=== PATIENT | female | born 1950 | race Caucasian/White ===

== ENCOUNTER 2020-10-10 13:46 | Outpatient (CLI) | payer MEDICARE, BC | END 2020-10-10 13:47 | disposition home or self-care (01) | LOC: COV 13:46 | PROVIDERS: ATTEND Internal Medicine Gastroenterology | DX: Z01.812 Encounter for preprocedural laboratory examination (principal); Z20.822 Contact with and (suspected) exposure to COVID-19 ==

== ENCOUNTER 2023-12-13 13:52 | Emergency (ER) | payer MEDICARE, BC ==
[2023-12-13 14:44] LABS: BASOPHILS % (AUTO) 0.5 %; EOSINOPHILS % (AUTO) 0.4 %; HCT - HEMATOCRIT 40.3 % (37.0-47.0); LYMPHOCYTES # (AUTO) 1.1 10^3/uL (1.5-3.5); LYMPHOCYTES % (AUTO) 19.7 %; MEAN CORPUSCULAR HEMOGLOBIN 33.3 pg (27.0-31.0); MEAN CORPUSCULAR HGB CONC 34.7 g/dL (32.0-36.0); MEAN CORPUSCULAR VOLUME 95.7 fL (81.0-99.0); MEAN PLATELET VOLUME 9.8 fL (7.9-10.8); MONOCYTES # (AUTO) 0.3 10^3/uL (0.0-1.0); MONOCYTES % (AUTO) 5.6 %; NEUTROPHILS # (AUTO) 4.2 10^3/uL (1.5-6.6); NEUTROPHILS % (AUTO) 73.6 %; PLT - PLATELET COUNT 271 10^3/uL (130-450); RED BLOOD COUNT 4.21 10^6/uL (4.20-5.40); RED CELL DISTRIBUTION WIDTH 12.8 % (12.0-15.0); WHITE BLOOD COUNT 5.7 x10^3/uL (4.8-10.8)
--- NOTE | 2023-12-13 14:46 | ED Physician Documentation ---
History of Present Illness - Stated complaint Stated Complaint: MEMORY LOSS,NAUSEA - Chief complaint Chief Complaint: Neuro - Additonal information Additional information: 73-year-old female with history of leukemia currently in remission last had treatment about 6 years ago with no other pertinent past medical history presents emergency department for severe short-term memory loss. Patient's brought patient to the hospital because of concerns for extreme amnesia. Patient has no memory of yesterday no history of memory issues in the past and is also having a lot of short-term memory issues today. Patient's said that the only abnormal thing that happened this morning as she did grab her left chest and said she felt like she was going to throw up and got quite tearful and then completely forgot about it. She has no other physical abnormalities no slurred speech able to walk without difficulty alert and oriented right now to self and place but does not recall any of the events that her brought to her recollection. PD PAST MEDICAL HISTORY - Past Medical History Past Medical History: No - Past Surgical History Past Surgical History: No - Allergies Allergies/Adverse Reactions: Allergies Allergy/AdvReac Type Severity Reaction Status Date / Time No Known Drug Allergies Allergy Verified 12/13/23 14:34 - Social History Does the pt smoke?: No Smoking Status: Never smoker Does the pt drink ETOH?: No Does the pt have substance abuse?: No - Immunizations Immunizations are current?: Yes PD ED PE NORMAL - Vitals Vital signs reviewed: Yes - General General: Alert and oriented X 3, No acute distress, Well developed/nourished - HEENT HEENT: Atraumatic, PERRL, EOMI, Moist mucous membranes - Neck Neck: Supple, no meningeal sign - Cardiac Cardiac: RRR - Respiratory Respiratory: No respiratory distress - Abdomen Abdomen: Normal bowel sounds, Soft - Back Back: No CVA TTP - Derm Derm: Normal color, Warm and dry, No rash - Extremities Extremities: No edema - Neuro Neuro: Alert and oriented X 3, 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 Able to recall events from Tuesday including details of what she ate and cooked. ). No: Lethargic, Obtunded, Weakness, Abnormal sensation, Nystagmus Results - Vitals Vitals: Vital Signs - 24 hr 12/13/23 12/13/23 12/13/23 14:01 14:41 15:11 Temperature 36.7 C Heart Rate 85 85 86 Respiratory 18 23 21 Rate Blood Pressure 183/79 H 167/68 H O2 Saturation 98 95 97 12/13/23 12/13/23 12/13/23 15:30 16:00 16:30 Temperature Heart Rate 85 84 84 Respiratory 21 20 21 Rate Blood Pressure 149/83 H 154/68 H 155/83 H O2 Saturation 97 96 97 12/13/23 17:00 Temperature Heart Rate 87 Respiratory 21 Rate Blood Pressure 174/84 H O2 Saturation 97 Oxygen O2 Source Room air - EKG (time done) 1457 EKG releavant findings:: EKG personally interpreted by author of this note. Relevant findings are: Rate: Rate (enter#) (82) Rhythm: NSR Hydes: Normal Intervals: Normal MT QRS: Normal Ischemia: Normal ST segments, Other Other comments: Other comments (Left atrial enlargement) Computer interpretation: Agree with computer - Labs Labs: Laboratory Tests 12/13/23 12/13/23 12/13/23 13:35 13:35 13:35 WBC 5.7 RBC 4.21 Hgb 14.0 Hct 40.3 MCV 95.7 MCH 33.3 H MCHC 34.7 RDW 12.8 Plt Count 271 MPV 9.8 Neut # (Auto) 4.2 Lymph # (Auto) 1.1 L [place] # (Auto) 0.3 Eos # (Auto) 0.0 Baso # (Auto) 0.0 Absolute Nucleated RBC 0.00 Nucleated RBC % 0.0 Sodium 136 Potassium 3.2 L Chloride 98 L Carbon Dioxide 30 Anion Gap 8.0 BUN 16 Creatinine 0.8 Estimated GFR (MDRD) 70 L Glucose 177 H Calcium 9.9 Magnesium 1.8 Total Bilirubin 0.5 AST 20 ALT 18 Alkaline Phosphatase 66 Troponin I High Sens 7.0 Total Protein 7.8 Albumin 4.6 Globulin 3.2 Albumin/Globulin Ratio 1.4 Lipase 23 TSH 12/13/23 13:35 WBC RBC Hgb Hct MCV MCH MCHC RDW Plt Count MPV Neut # (Auto) Lymph # (Auto) [place] # (Auto) Eos # (Auto) Baso # (Auto) Absolute Nucleated RBC Nucleated RBC % Sodium Potassium Chloride Carbon Dioxide Anion Gap BUN Creatinine Estimated GFR (MDRD) Glucose Calcium Magnesium Total Bilirubin AST ALT Alkaline Phosphatase Troponin I High Sens Total Protein Albumin Globulin Albumin/Globulin Ratio Lipase TSH 1.18 - Rads (name of study) head ct Relevant Findings:: Final report received, EMP independent interpretation of test, Other (no intracranial abnormalities or findings. ) PD Medical Decision Making - ED course ED course: 74 yo female presents to the ER for amnesia. Pts states yesterday she was acting entirely normal, no confusion no repetitive behavior or any indication of amnesia or forgetfulness. While here in the ER she is AOx4, no neurological deficits, NIH score 0, but continues to not be able to recall events from this morning or yesterday. Head CT complete and no intracranial abnormalities or findings. No recent illnesses or strenuous activites, did go for a long walk the day before but states it was a normal length for her and she was well hydrated. Mild Hypokalemia, 3.2, 40mEq of PO potassium given. No other lab abnormalities, no anemia or leukocytosis. Denies dizziness or any balance issues. Pt is likely experiencing transient global amnesia. She is safe for discharge at this time and understand return precautions. I do not believe pt is experiencing CVA or TIA. She is leaving with her and told to follow up with PCP or to return to ER tomorrow if symptoms to no resolve. Departure - Departure Disposition: 01 Home, Self Care Clinical Impression: Transient global amnesia, Hypokalemia Instructions: ED Altered Loc Comments: Transient global amnesia is an episode of confusion that comes on suddenly in a person who is otherwise alert. This confused state isn't caused by a more common neurological condition, such as epilepsy or stroke. During an episode of transient global amnesia, a person is unable to create new memory, so the memory of recent events disappears. You can't remember where you are or how you got there. You may not remember anything about what's happening right now. You may keep repeating the same questions because you don't remember the answers you've just been given. You may also draw a blank when asked to remember things that happened a day, a month or even a year ago. The condition most often affects people in middle or older age. With transient global amnesia, you do remember who you are, and you recognize the people you know well. Episodes of transient global amnesia always get better slowly over a few hours. During recovery, you may begin to remember events and circumstances. Transient global amnesia isn't serious, but it can still be frightening. Seek immediate medical attention for anyone who quickly goes from normal awareness of present reality to confusion about what just happened. If the person experiencing memory loss is too confused to call an ambulance, call one yourself. Transient global amnesia isn't dangerous. But there's no easy way to tell the difference between transient global amnesia and the life-threatening illnesses that can also cause sudden memory loss. Below is your CT readings. PT NAME: IRISH MOE MR#: [id number] PRE ER/ED AGE: 73 CI DT/TM: 12/13/2302/28/1448 PCP: : 1950 ATT: SEX: F ORD: [facility]illo Denise [employer]IOR MANAGER [facility] EXAM: [id number] CT/HEADWO ([id number]) PROCEDURE: Head WO INDICATIONS: memory loss TECHNIQUE: Noncontrast 4.5 mm thick angled axial sections acquired from the foramen magnum to the vertex. For radiation dose reduction, the following was used: automated exposure control, adjustment of mA and/or kV according to patient size. COMPARISON: None. FINDINGS: Image quality: Excellent. CSF spaces: Basal cisterns are patent. No extra-axial fluid collections. Ventricles are normal in size and shape. Brain: No midline shift. No intracranial masses or hemorrhage. Age-related global volume loss and chronic microvascular ischemic changes. Intracranial atherosclerotic vascular calcifications. Meyers- white matter interface is normal. Skull and face: Calvarium and visualized facial bones are intact, without suspicious lesions. Sinuses: Visualized sinuses and mastoids are clear. IMPRESSION: No acute intracranial pathology. Mild age-related global volume loss and chronic microvascular ischemic changes. Reviewed by: oTm Steinberg MD on 12/13/2023 3:32 PM PDT Forms: PCP List Discharge Date/Time: 12/13/23 17:27
[2023-12-13 14:54] LABS: ALBUMIN 4.6 g/dL (3.2-5.5); ALBUMIN/GLOBULIN RATIO 1.4 (1.0-2.2); BILIRUBIN,TOTAL 0.5 mg/dL (0.2-1.0); CALCIUM 9.9 mg/dL (8.5-10.3); CREATININE 0.8 mg/dL (0.6-1.3); MAGNESIUM 1.8 mg/dL (1.7-2.3); POTASSIUM 3.2 mmol/L (3.5-4.5); TOTAL PROTEIN 7.8 g/dL (6.4-8.9)
--- NOTE | 2023-12-13 15:33 | CT Report ---
PROCEDURE: Head WO INDICATIONS: memory loss TECHNIQUE: Noncontrast 4.5 mm thick angled axial sections acquired from the foramen magnum to the vertex. For r adiation dose reduction, the following was used: automated exposure control, adjustment of mA and/or kV according to patient size. COMPARISON: None. FINDINGS: Image quality: Excellent. CSF spaces: Basal cisterns are patent. No extra-axial fluid collections. Ventricles are normal in size and shape. Brain: No midline shift. No intracranial masses or hemorrhage. Age-related global volume loss and c hronic microvascular ischemic changes. Intracranial atherosclerotic vascular calcifications. Meyers-wh ite matter interface is normal. Skull and face: Calvarium and visualized facial bones are intact, without suspicious lesions. Sinuses: Visualized sinuses and mastoids are clear. IMPRESSION: No acute intracranial pathology. Mild age-related global volume loss and chronic microvascular ischem ic changes. Reviewed by: Tom Steinberg MD on 12/13/2023 3:32 PM PDT Approved by: Tom Steinberg MD on 12/13/2023 3:32 PM PDT Station ID: [id number]
[2023-12-13 16:41] VITALS: O2SAT 97
[2023-12-13 17:11] VITALS: BP 174/84
[2023-12-13] MEDS: POTASSIUM CHLORIDE 20 MEQ TABLET PO STA (17:16)
== END 2023-12-13 17:27 | disposition home or self-care (01) ==
LOC: ED 13:52
DX: G45.4 Transient global amnesia (principal); E87.6 Hypokalemia
CPT/HCPCS: 36415; 80053; 83690; 83735; 84443; 84484; 85025; 93005; 99284

== ENCOUNTER 2023-12-19 08:00 | Outpatient (CLI) | payer MEDICARE, BC ==
--- NOTE | 2023-12-19 11:41 | XRAY Report ---
PROCEDURE: Foot 3+V RT INDICATIONS: PAIN IN RIGHT FOOT TECHNIQUE: 3 views of the foot were acquired. COMPARISON: None. FINDINGS: Bones: Decreased mineralization. Possible nondisplaced fifth proximal phalanx fracture. No definite t hird digit fracture. Mild diffuse interphalangeal joint space loss. Bone alignment remains normal. Soft tissues: No tibiotalar joint effusion. Achilles tendon appears normal. IMPRESSION: Possible nondisplaced fifth proximal phalanx fracture. Correlate with point tenderness. Reviewed by: Camilla Fried MD on 12/19/2023 11:39 AM PDT Approved by: Camilla Fried MD on 12/19/2023 11:39 AM PDT Station ID: [id number]
== END 2023-12-19 23:59 | disposition home or self-care (01) ==
LOC: DI.S 08:00
PROVIDERS: ATTEND Registered Nurse
DX: M79.671 Pain in right foot (principal)